=== PATIENT | male | born 1990 | race Caucasian/White ===

== ENCOUNTER 2019-05-13 19:15 | Emergency (ER) | payer BC ==
[~2019-05-13] VITALS: Ht 170.2 cm; Wt 70.3 kg
[2019-05-13 19:32] VITALS: Ht 170.2 cm; Wt 70.3 kg
[2019-05-14 00:02] VITALS: BP 122/80
== END 2019-05-14 00:02 | disposition home or self-care (01) ==
LOC: ED 19:15
DX: S01.21XA Laceration without foreign body of nose, initial encounter (principal); R53.1 Weakness; V49.49XA Driver injured in collision with other motor vehicles in traffic accident, initial encounter; Y93.I9 Activity, other involving external motion; Y92.413 State road as the place of occurrence of the external cause; Y99.8 Other external cause status
CPT/HCPCS: 90715; J2001; J2270; Q0162